=== PATIENT | male | born 1960 | race Caucasian/White ===

== ENCOUNTER 2016-12-04 15:00 | Inpatient (IN) | payer OTHER ==
[~2016-12-04] VITALS: Ht 185.4 cm; Wt 112.1 kg
[2016-12-07] MEDS ORDERED: TRAM50TA PO (08:44)
[2016-12-07] MEDS ORDERED: CETI10 PO (08:44)
[2016-12-07] MEDS ORDERED: METF1000 PO (08:44)
[2016-12-07] MEDS ORDERED: OMEP20TA PO (08:44)
[2016-12-07] MEDS ORDERED: ACET-703 PO (08:44)
[2016-12-07] MEDS ORDERED: LISI20TA3 PO (08:44)
--- NOTE | 2016-12-17 19:39 | MH ---
cc: LEBRON VILLAGOMEZ DATE OF ADMISSION 12/18/2016 ADMISSION DIAGNOSIS Osteoarthritis of the right hip. HISTORY OF THE PRESENT ILLNESS This patient is a 56-year-old male with severe arthritis of the right hip and mild arthritis of the left hip. The patient has had conservative care of his right hip that goes back to 2014 under the care of Dr. Griffiths. The patient has requested that I consider continuing his care and consider anterior hip replacement arthroplasty. PAST MEDICAL HISTORY, SOCIAL HISTORY, FAMILY HISTORY AND REVIEW OF SYSTEMS See attached notes. PHYSICAL EXAMINATION VITAL SIGNS: 6 feet, 250 pounds, BMI 33.9. Blood pressure 150/85 sitting. HEENT: Normocephalic, atraumatic. Pupils equal, round, reactive to light and accommodation. Extraocular motions intact. NECK: Supple. CHEST: Clear. HEART: Regular rate rhythm. ABDOMEN: Soft, nontender, normoactive bowel sounds. MUSCULOSKELETAL: The right hip severe pain with range of motion especially with internal and external rotation. There is a mild flexion contracture. NEUROLOGIC: Examination is within normal limits. VASCULAR: Examination is within normal limits. IMAGING X-ray of the pelvis shows evidence of severe arthritis of right hip and mild arthritis of the left hip. IMPRESSION Osteoarthritis right hip, severe. PLAN Right total hip replacement arthroplasty direct anterior exposure. CONSENT The risks with surgery including infection, bleeding, loss of motion, continued pain, need for further surgery, neurologic and vascular injury. The patient understands these issues and wishes to press on with surgery as outlined above. MD ANGIE Mart/RENATA /6:08 PM /7:28 PM FARIBA
[2016-12-18] MEDS ORDERED: EXPAREL PERI-ARTICULAR INJECTION (TOTAL VOL. 60 ML) P-ARTICULR SCH ×2 (05:45)
[2016-12-18] MEDS ORDERED: INSULIN HUMAN REGULAR 1,000 UNITS/10 ML VIAL SQ PRN (06:00)
[2016-12-18] MEDS ORDERED: CHLORHEXIDINE GLUCONATE 2 % 1 PACK (2 CLOTHS) TOPICAL PRN (06:00)
[2016-12-18] MEDS ORDERED: POVIDONE IODINE 5% (ANTISEPSIS KIT) 4 APPLICATIONS EACH NARE PRN (06:00)
[2016-12-18] MEDS ORDERED: LACTATED RINGER'S 1000 ML IV PRN (06:00)
[2016-12-18] MEDS ORDERED: SODIUM CHLORID 0.9% 500 ML IV PRN (06:00)
[2016-12-18] MEDS ORDERED: METOPROLOL TARTRATE 25 MG TAB PO PRN (06:00)
[2016-12-18] MEDS ORDERED: POVIDONE IODINE 7.5% SCRUB 118 ML BOTTLE TOPICAL SCH (06:15)
[2016-12-18] MEDS ORDERED: VANCOMYCIN 1000 MG/NS 250 ML (for <70 kg) IV SCH ×2 (06:15)
[2016-12-18] MEDS ORDERED: ceFAZolin 2 GM PREMIX 50 ML IV SCH (06:15)
[2016-12-18 06:25] VITALS: BP 142/75; PULSE 73; RESP 20; TEMP 98.7; O2SAT 94
[2016-12-18] MEDS ORDERED: GENTAMICIN SULFATE 80 MG/2 ML VIAL ONE (07:02)
[2016-12-18] MEDS ORDERED: ACETAMINOPHEN 1000 MG/100 ML VIAL IV ONE (07:22)
[2016-12-18] MEDS ORDERED: MIDAZOLAM HCL 2 MG/2 ML VIAL ONE ×2 (07:23→11:01)
[2016-12-18] MEDS ORDERED: KETAMINE HCL 500 MG/5 ML VIAL ONE (07:23)
[2016-12-18] MEDS ORDERED: FAMOTIDINE 20 MG/2 ML VIAL ONE (07:23)
[2016-12-18] MEDS ORDERED: DEXAMETHASONE SOD PHOS 4 MG/ML VIAL ONE (07:23)
[2016-12-18] MEDS ORDERED: TRANEXAMIC ACID INJ 1,100 MG in SODIUM CHLORIDE 0.9% INJ 100 ML IV SCH (07:30)
[2016-12-18] MEDS ORDERED: SODIUM CHLORIDE 0.9% FLUSH 5 ML FLUSH IVF PRN (07:45)
[2016-12-18] MEDS ORDERED: Post-op Orders (for Pharmacy) MISC XX ONE (07:45)
[2016-12-18] MEDS ORDERED: GLUCAGON 1 MG/ML VIAL IM/SQ PRN (07:45)
[2016-12-18] MEDS ORDERED: ACETAMINOPHEN/HYDROcodone 325 MG/10 MG TAB PO PRN (07:45)
[2016-12-18] MEDS ORDERED: MISCELLANEOUS PHARMACY INFORMATION XX ONE (07:45)
[2016-12-18] MEDS ORDERED: DEXTROSE 50% IN WATER 50 ML VIAL(D50) IV PRN (07:45)
[2016-12-18] MEDS ORDERED: MORPHINE SULFATE 8 MG/ML INJ IM PRN (07:45)
[2016-12-18] MEDS ORDERED: MISCELLANEOUS NURSING INFORMATION XX PRN (07:45)
[2016-12-18] MEDS ORDERED: MORPHINE SULFATE 30 MG/30 ML PCA IV SCH (07:45)
[2016-12-18] MEDS ORDERED: NALOXONE HCL 0.4 MG/ML AMP IV PRN (07:45)
[2016-12-18] MEDS ORDERED: HYDR-3366 PO (07:50)
[2016-12-18] MEDS ORDERED: XARE10TA PO (07:50)
[2016-12-18] MEDS: HYDROCHLOROTHIAZIDE 25 MG TAB PO SCH (09:00)
[2016-12-18] MEDS: CETIRIZINE HCL 10 MG TAB PO SCH (09:00)
[2016-12-18] MEDS: LISINOPRIL 20 MG TAB PO SCH (09:00)
[2016-12-18] MEDS: SODIUM CHLORIDE 0.9% FLUSH 5 ML FLUSH IVF SCH ×2 (09:00→20:36)
[2016-12-18] MEDS: metFORMIN HCL 500 MG TAB PO SCH ×2 (09:00→17:00)
[2016-12-18] MEDS: MAGNESIUM HYDROXIDE SUSP 30 ML CUP PO SCH ×2 (09:00→20:36)
[2016-12-18 10:07] LABS: REVIEW FLAG FINAL
[2016-12-18 10:08] LABS: HEMATOCRIT 34.9 % (39.0-51.0)
--- NOTE | 2016-12-18 10:19 | PD.OP ---
cc: Cornel Bynum MD Operative Report Date of Surgery: December 18, 2016 Preoperative Diagnosis: Osteoarthritis right hip, severe Postoperative Diagnosis: Same Procedure: Right total hip replacement arthroplasty, direct anterior exposure Anesthesia: Gen. Surgeon: Cornel Bynum Portal Developer(s): YU Kang Operation and Findings: EBL: 1000 cc INDICATION: This patient presents with significant hip pain related to severe osteoarthritis of the right hip with acetabular osteophytic formation. Despite extensive conservative care this patient continues to be painful and now presents for surgical treatment. NOTE: Nya Kang PA-C was present for the entire surgical procedure as my first responder. In my medical opinion her skill and care was necessary for the proper management of this patient. COMPONENTS: COMPANY: [employer] CUP: [place], 60 mm, 100 series, gription surface LINER: Altrx 36, neutral STEM: [place], size 14, high offset, hydroxyapatite-coated HEAD: 36 mm, ceramic, +1.5 neck length, /14 taper PROCEDURE: This patient was brought to the operating room and anesthetized in the supine position and positioned on the fracture table with both legs held extended. The right hip and leg was scrubbed with alcohol followed by Hibiclens followed by ChloraPrep and draped sterilely. Antibiotics were given within routine time window and a timeout was done. A 4 inch incision was made starting 2 cm distal and 2 cm lateral to the anterior superior iliac spine. The fascia micheal was opened longitudinally. The interval between the fascia micheal and the rectus was opened down to the capsule of the hip joint. Retractors were positioned allowing good visualization of the capsule. This was opened longitudinally and flaps were created. Stay sutures were utilized. Exposure was excellent. The neck was cut at the proper location using fluoroscopy as a guide. The head was removed. Deep retractors were positioned allowing good visualization of the acetabulum. Acetabulum was deepened down to the floor starting with a proper size reamer and reaming up to 59 mm. A trial was utilized. Fluoroscopy was used to check position and confirmed satisfactory alignment. The rim was reamed with a 60 mm reamer and the final cup was positioned in approximately 20 of anteversion and 40-45 of abduction. Position was satisfactory. A single hole eliminator was positioned followed by the final liner. The lifting hook was utilized. The leg was dropped to the floor, maximally externally rotated and brought across the midline. Retractors were positioned. A box osteotome was utilized followed by progressive broaching to the proper stem size. Trial reduction showed excellent alignment and fit. With 60 of external rotation the leg was dropped to the floor without evidence of anterior subluxation. The wound was irrigated. The final stem was inserted and was found to be very stable. The final reduction using the final head. Stability was as previously noted. Intraoperative x-rays were taken. The wound was irrigated copiously. Hemostasis was controlled. Local anesthesia was utilized. The capsule was repaired with #2 Tycron sutures. The fascia micheal was repaired with running 0 PDS on a loop. Subcutaneous tissue was approximated with 2-0 Vicryl and skin with running intradermal 3-0 Vicryl followed by Steri-Strips. A sterile dressing was applied. The patient was awakened and taken to the recovery room in satisfactory condition. FINDINGS: There was severe osteoarthritis of the right hip. The final solution was excellent. No complication was appreciated. The patient initially was in room 16. There was a contamination in the room which necessitated that we moved to room 17 which delayed the start of the surgical procedure. It was unrelated to the surgical event. Cornel Bynum MD December 18, 2016 10:19
[2016-12-18] MEDS ORDERED: TRANEXAMIC ACID INJ 1,130 MG in SODIUM CHLORIDE 0.9% INJ 100 ML IV SCH (10:30)
--- NOTE | 2016-12-18 10:40 | RADRPT ---
EXAM DATE/TIME: 12/18/2016 08:43 [facility] COMPARISON: No previous studies available for comparison. INDICATIONS : Right total hip replacement. MEDICAL HISTORY : Hypertension. Gastroesophageal reflux disease. Arthritis. SURGICAL HISTORY : Total hip replacement. ENCOUNTER: Initial ACUITY: 1 day PAIN SCORE: Non-responsive. LOCATION: Right hip. FINDINGS: The patient is status post right hip replacement with prosthesis in good position. No fracture or di slocation is noted. CONCLUSION: 1. Status post right hip replacement with prosthesis in good position. Juan Pablo Aleman MD on December 18, 2016 at 10:30 Board Certified Radiologist. This report was verified electronically.
[2016-12-18] MEDS ORDERED: DO NOT ADM ANY ANTICOAGULANT DRUGS PRN (10:53)
[2016-12-18] MEDS ORDERED: fentaNYL CITRATE 250 MCG/5 ML AMP ONE (11:01)
[2016-12-18] MEDS ORDERED: MORPHINE SULFATE 4 MG/ML INJ ONE (11:01)
[2016-12-18] MEDS: LACTATED RINGER'S 1000 ML INJ 1,000 ML IV SCH ×2 (11:05→20:13)
[2016-12-18] MEDS ORDERED: *morphine SULFATE 8 MG/ML PERIprocedure ONLY ONE ×2 (11:10→13:21)
[2016-12-18] MEDS: PCA - TOTAL MG MORPHINE DELIVERED PER SHIFT SCH ×2 (14:00→22:09)
[2016-12-18 14:30] VITALS: BP 121/63; PULSE 75; RESP 18; TEMP 97.2; O2SAT 99
[2016-12-18] MEDS ORDERED: PROPOFOL 200 MG/20 ML AMP IV ONE (15:09)
[2016-12-18] MEDS ORDERED: PHENYLEPH/NS 1000 MCG/10 ML SYR IV ONE (15:09)
[2016-12-18] MEDS ORDERED: ONDANSETRON HCL 4 MG/2 ML VIAL IV PUSH ONE (15:09)
[2016-12-18] MEDS ORDERED: LACTATED RINGER'S 1000 ML INJ 5,000 ML IV ONE (15:10)
[2016-12-18] MEDS: INSULIN NovoLIN REGULAR SUPPLEMENTAL SCALE SQ SCH ×2 (16:00→20:48)
[2016-12-18 18:09] VITALS: O2SAT 99
[2016-12-18 20:25] VITALS: BP 129/61; PULSE 87; RESP 18; TEMP 99.5; O2SAT 96
[2016-12-18] MEDS: ACETAMINOPHEN/HYDROcodone 325 MG/10 MG TAB PO PRN (20:35)
[2016-12-18] MEDS: SENNOSIDES 8.6 MG TAB PO SCH (20:36)
[2016-12-19] VITALS (7 sets, daily range): BP systolic 110–141; BP diastolic 59–73; PULSE 79–87; RESP 17–18; TEMP 98.4–100.1; O2SAT 92–98
[2016-12-19] MEDS: ACETAMINOPHEN/HYDROcodone 325 MG/10 MG TAB PO PRN ×4 (02:26→21:18)
[2016-12-19] MEDS: PCA - TOTAL MG MORPHINE DELIVERED PER SHIFT SCH (05:24)
[2016-12-19] MEDS: INSULIN NovoLIN REGULAR SUPPLEMENTAL SCALE SQ SCH ×4 (05:26→21:00)
[2016-12-19 07:11] LABS: HEMATOCRIT 30.5 % (39.0-51.0)
[2016-12-19] MEDS: LACTATED RINGER'S 1000 ML INJ 1,000 ML IV SCH ×2 (08:43→21:13)
[2016-12-19] MEDS: SODIUM CHLORIDE 0.9% FLUSH 5 ML FLUSH IVF SCH ×2 (09:00→21:18)
[2016-12-19] MEDS: CETIRIZINE HCL 10 MG TAB PO SCH (09:24)
[2016-12-19] MEDS: metFORMIN HCL 500 MG TAB PO SCH ×2 (09:25→17:58)
[2016-12-19] MEDS: LISINOPRIL 20 MG TAB PO SCH (09:25)
[2016-12-19] MEDS: HYDROCHLOROTHIAZIDE 25 MG TAB PO SCH (09:25)
[2016-12-19] MEDS: MAGNESIUM HYDROXIDE SUSP 30 ML CUP PO SCH ×2 (09:27→21:00)
[2016-12-19] MEDS: RIVAROXABAN 10 MG TAB PO SCH (09:29)
--- NOTE | 2016-12-19 13:22 | HHI.FF ---
Face to Face Verification Diagnosis: (1) Right hip pain (2) Osteoarthritis of right hip Physical Therapy Gait training, Safety evaluation, Transfer training, bed to chair Hip: Total hip, Protocol: Right, Progress to weight bearing Right LE Weight Bearing: WB as tolerated Additional Instructions PT 4-5 days/wk for 2 weeks. WBAT RLE. Anterior elias precautions. Walker as needed. Gait training / transfers. Nursing RN Days per Week: 3 x Week(s): 1 Dressing Changes: Do not change dressing Additional Instructions Vitals assessment, dressing assessment - do not change unless saturated. I have seen patient Doc Galindo on 12/19/16. My clinical findings support the need for the requested home health care services because: Limited ability to care for self High risk of falls I certify that my clinical findings support that this patient is homebound because: Post-op weakness Unsteady gait/balance Ree Henriquez December 19, 2016 13:22
[2016-12-19] MEDS ORDERED: MISC-163 (13:25)
--- NOTE | 2016-12-19 13:25 | PD.ORT.PN ---
Subjective Subjective Remarks Moderate right hip pain but 'doing fine'. DC'd morphine as he felt it was making him lightheaded. No new radiating leg pain. Asks about restarting omeprazole. He struggled sleeping last night. No CP or SOB. Questions about surgery. Objective Vitals Vital Signs Date Time Temp Pulse Resp B/P Pulse Ox O2 Delivery O2 Flow Rate FiO2 12/19/16 10:26 16 12/19/16 09:45 98 21 12/19/16 08:00 98.7 84 18 140/64 93 12/19/16 05:24 18 12/19/16 04:25 98.4 79 17 131/60 95 12/19/16 00:20 99.8 82 17 118/59 95 12/18/16 22:09 16 12/18/16 20:25 99.5 87 18 129/61 96 12/18/16 18:09 99 21 12/18/16 15:05 Nasal Cannula 2.00 12/18/16 14:30 97.2 75 18 121/63 99 12/18/16 14:00 98.7 74 16 118/59 98 Nasal Cannula 2 12/18/16 13:30 73 16 132/62 98 Nasal Cannula 2 I/O 12/18/16 12/18/16 12/18/16 12/19/16 12/19/16 12/19/16 07:00 15:00 23:00 07:00 15:00 23:00 Intake Total 4760 ml 1123 ml 839 ml Output Total 2275 ml 2000 ml 1325 ml Balance 2485 ml -877 ml -486 ml Intake Oral 240 ml 120 ml IV Total 260 ml 883 ml 719 ml Other 4500 ml Output Urine Total 1275 ml 2000 ml 1325 ml Estimated Blood Loss 1000 ml # Bowel Movements 0 0 Result Diagram: 12/19/16 0625 Objective Remarks Sitting up in bed, at bedside NAD VSS RLE Anterior hip dressing c/d/i, no drainage, mild swelling, no erythema +motor at, +sens, +nvi thigh and calf supple, neg homans Assessment & Plan Ortho Post Op Day #: 1 Problem List: Assessment and Plan pod31 s/p R SAUL, anterior [employer] dc'd. PO pain meds as needed. Ambien 5mg qhs as sleep aid. Ok to restart 20mg omeprazoel daily. Xarelto 10mg qd. PT - WBAT RLE. Anterior saul precautions. Hold dressing changes unless saturated. D/C planning, [facility] tomorrow. Already has walker. States he does not need elevated commode. Ree Henriquez December 19, 2016 13:25
[2016-12-19] MEDS ORDERED: ZOLPIDEM TARTRATE 5 MG TAB PO PRN (13:30)
[2016-12-19] MEDS ORDERED: ONDANSETRON HCL 4 MG/2 ML VIAL IV PUSH PRN (16:00)
[2016-12-19] MEDS: PANTOPRAZOLE SOD 20 MG DELAYED RELEASE TAB PO SCH (16:47)
[2016-12-19] MEDS: SENNOSIDES 8.6 MG TAB PO SCH (21:18)
[2016-12-20 00:29] VITALS: BP 136/74; PULSE 86; RESP 18; TEMP 99; O2SAT 96
[2016-12-20] MEDS: ACETAMINOPHEN/HYDROcodone 325 MG/10 MG TAB PO PRN ×2 (05:54→12:40)
[2016-12-20 06:08] LABS: HEMATOCRIT 28.8 % (39.0-51.0)
[2016-12-20] MEDS: INSULIN NovoLIN REGULAR SUPPLEMENTAL SCALE SQ SCH ×2 (06:08→11:00)
[2016-12-20 06:20] LABS: REVIEW FLAG FINAL
[2016-12-20 08:00] VITALS: BP 130/72; PULSE 84; RESP 18; TEMP 97.9; O2SAT 94
[2016-12-20] MEDS: SODIUM CHLORIDE 0.9% FLUSH 5 ML FLUSH IVF SCH (09:00)
--- NOTE | 2016-12-20 09:03 | HHI.DCPOC ---
Discharge Care Plan Diagnosis: (1) Right hip pain (2) Osteoarthritis of right hip Your Health Problems Are: Incision/Drains Swelling Goals to Promote Your Health * To prevent worsening of your condition and complications * To maintain your health at the optimal level Directions to Meet Your Goals Take your medications as prescribed Follow your dietary instruction Follow activity as directed Keep your appointments as scheduled Take your immunizations and boosters as scheduled If your symptoms worsen call your PCP, if no PCP go to Urgent Care Center or Emergency Room Smoking is Dangerous to Your Health. Avoid second hand smoke Call the 24-hour hour crisis hotline for domestic abuse at Ree Henriquez December 20, 2016 09:03
--- NOTE | 2016-12-20 09:08 | HHI.DS ---
Discharge Summary Admission Date December 18, 2016 at 05:22 Discharge Date: December 20, 2016 Admitting Diagnosis see below Diagnosis: (1) Right hip pain Diagnosis: Principal (2) Osteoarthritis of right hip Diagnosis: Principal Procedures Right total hip arthroplasty, Direct anterior approach Brief History This is a 56 year old male patient with a multi-year history of right hip pain. He sought out medical treatment in 2014. Conservative measures were pursued for more than a year. Eventually surgical treatment was recommended. Because he preferred the anterior approach he was referred to Dr. Cornel Bynum. Treatment options were discussed and the patient elected to move forward with right total hip arthroplasty, direct anterior approach. CBC/BMP: 12/20/16 0524 Significant Findings Laboratory Tests Test 12/18/16 12/19/16 12/20/16 09:40 06:25 05:24 Hemoglobin 11.0 GM/DL 9.2 GM/DL 9.2 GM/DL (13.0-17.0) (13.0-17.0) (13.0-17.0) Hematocrit 34.9 % 30.5 % 28.8 % (39.0-51.0) (39.0-51.0) (39.0-51.0) PE at Discharge Sitting up in bed, at bedside NAD VSS RLE Anterior hip dressing c/d/i, no drainage, mild swelling, no erythema +motor at, +sens, +nvi thigh and calf supple, neg [facility] Hospital Course Surgical treatment was performed on the day of admission without complication. He recovered well in pACU and was transferred to the orthopaedic floor. Pain was controlled with IV and oral medications. DVT prophylaxis was initiated pod# 1. He was compliant with physical therapy and all precautions. After 2 days he was found to be stable and discharged home with home health care. He was instructed to continue therapy, pursue a high fiber diet and to continue DVT prophylaxis for 30 days. Pt Condition on Discharge: Stable Discharge Disposition: Disch w/ Home Health Serv Discharge Instructions Diet Instructions: Diabetic Diet, High Fiber Diet Activities You Can Perform: Weight Bearing as Carlos Activities to Avoid: Strenuous Activity Additional Activity Instruc.: anterior elias protocol New Medications: 3-in-1 Bedside Toilet (3-in-1 Bedside Toilet) 1 Mis Mis 1 EA .ROUTE DIRECTED #1 EA Hydrocodone-Acetaminophen ([place]) 10-325 Mg Tab 1 TAB PO Q4H PRN PAIN #50 Ref 0 TAB Rivaroxaban (Xarelto) 10 Mg Tab 10 MG PO DAILY PRN Prevent Blood Clot #25 Ref 0 TAB Continued Medications: Acetaminophen (Tylenol Extra Strength) 500 Mg Tab 1000 MG PO Q6H PRN pain Ref 0 TAB Cetirizine (Cetirizine) 10 Mg Tab 10 MG PO DAILY Allergies Ref 0 TAB Lisinopril-Hctz (Lisinopril-Hctz) 20-25 Mg Tab 1 TAB PO DAILY Blood Pressure Management #30 Ref 0 TAB Metformin (Metformin) 1,000 Mg Tab 1000 MG PO BIDPC With meals Blood Sugar Management #60 Ref 0 TAB Omeprazole (Omeprazole) 20 Mg Tab 20 MG PO DAILY Heartburn Management #30 Ref 0 TAB Tramadol (Tramadol) 50 Mg Tab 50 MG PO Q6H PRN PAIN Ref 0 TAB Ree Henriquez December 20, 2016 09:08
--- NOTE | 2016-12-20 09:11 | PD.ORT.PN ---
Subjective Subjective Remarks Hip pain a little better this morning. Was able to get more rest last night. Less nausea since morphine dc'd. No CP or SOB. Ready for d/c home today. Objective Vitals Vital Signs Date Time Temp Pulse Resp B/P Pulse Ox O2 Delivery O2 Flow Rate FiO2 12/20/16 00:29 99.0 86 18 136/74 96 12/19/16 20:05 100.1 87 17 135/69 97 12/19/16 16:45 17 12/19/16 16:00 98.7 85 18 141/73 92 12/19/16 12:00 99.0 80 18 110/62 95 12/19/16 09:45 98 21 I/O 12/19/16 12/19/16 12/19/16 12/20/16 12/20/16 12/20/16 07:00 15:00 23:00 07:00 15:00 23:00 Intake Total 839 ml 960 ml 480 ml Output Total 1325 ml 750 ml 550 ml Balance -486 ml 210 ml -70 ml Intake Oral 120 ml 960 ml 480 ml IV Total 719 ml Output Urine Total 1325 ml 750 ml 550 ml # Voids 3 # Bowel Movements 0 0 0 Result Diagram: 12/20/16 0524 Procedures Right total hip arthroplasty, Direct anterior approach Objective Remarks Sitting up in bed, at bedside NAD VSS RLE Anterior hip dressing c/d/i, no drainage, mild swelling, no erythema +motor at, +sens, +nvi thigh and calf supple, neg homans Assessment & Plan Ortho Post Op Day #: 2 Problem List: (1) Right hip pain (2) Osteoarthritis of right hip Assessment and Plan pod#2 s/p R SAUL, anterior Ortho stable. Ok to d/c home w c today. Mild postop anemia, Hg 9.2. Encouraged hydration. PO pain meds as needed. Xarelto 10mg qd. PT - WBAT RLE. Anterior saul precautions. Hold dressing changes unless saturated. F/U in 2 weeks as scheduled. F2F and DME written. Ree Henriquez December 20, 2016 09:11
[2016-12-20] MEDS: PANTOPRAZOLE SOD 20 MG DELAYED RELEASE TAB PO SCH (09:36)
[2016-12-20] MEDS: metFORMIN HCL 500 MG TAB PO SCH (09:36)
[2016-12-20] MEDS: MAGNESIUM HYDROXIDE SUSP 30 ML CUP PO SCH (09:36)
[2016-12-20] MEDS: RIVAROXABAN 10 MG TAB PO SCH (09:36)
[2016-12-20] MEDS: CETIRIZINE HCL 10 MG TAB PO SCH (09:37)
[2016-12-20] MEDS: HYDROCHLOROTHIAZIDE 25 MG TAB PO SCH (09:37)
[2016-12-20] MEDS: LACTATED RINGER'S 1000 ML INJ 1,000 ML IV SCH (09:37)
[2016-12-20] MEDS: LISINOPRIL 20 MG TAB PO SCH (09:37)
[2016-12-20 12:00] VITALS: BP 130/64; PULSE 82; RESP 18; TEMP 98.6; O2SAT 97
== END 2016-12-20 13:54 | disposition home health service (06) | DRG 470 ==
LOC: HSDI 12-18 05:22 → N06B 12-18 14:35
PROVIDERS: ADMIT Orthopaedic Surgery Orthopaedic Surgery of the Spine; ATTEND Orthopaedic Surgery Orthopaedic Surgery of the Spine
PROC: 0SR903A Replacement of Right Hip Joint with Ceramic Synthetic Substitute, Uncemented, Open Approach (ICD-10-PCS; principal; 2016-12-18 07:27)
DX: M16.0 Bilateral primary osteoarthritis of hip (principal); D64.9 Anemia, unspecified; R11.0 Nausea
CPT/HCPCS: 73502; 76000; 82948; 85014; 85018; 86850; 86900; 86901; 86920; 94150; C1776; C9290; J0131; J0690; J1100; J1580; J2250; J2270; J2370; J2405; J3010; J3370; J7050; J7120

== ENCOUNTER → 2016-12-07 | Outpatient (CLI) | payer OTHER ==
[~2016-12-07] MED LIST: ACET-703 PO; CETI10 PO; HYDR-3366 PO; LISI20TA3 PO; METF1000 PO; MISC-163; OMEP20TA PO; TRAM50TA PO; XARE10TA PO
[2016-12-07 08:42] LABS: AUTOMATED NEUTROPHIL # 6.4 TH/MM3 (1.8-7.7); BASOPHIL # 0.1 TH/MM3 (0-0.2); BASOPHIL % 0.7 % (0.0-2.0); EOSINOPHIL # 0.3 TH/MM3 (0-0.4); EOSINOPHIL % 2.7 % (0.0-4.0); HEMATOCRIT 42.3 % (39.0-51.0); LYMPH % 22.9 % (9.0-44.0); LYMPHOCYTE # 2.2 TH/MM3 (1.0-4.8); MEAN CELL VOLUME 63.5 FL (80.0-100.0); MEAN CORPUSCULAR HEMOGLOBIN 20.1 PG (27.0-34.0); MEAN CORPUSCULAR HGB CONC 31.7 % (32.0-36.0); MONO % 6.5 % (0.0-8.0); NEUT % 67.2 % (16.0-70.0); PLATELET COUNT 351 TH/MM3 (150-450); RED BLOOD COUNT 6.65 MIL/MM3 (4.50-5.90); RED CELL DISTRIBUTION WIDTH 16.3 % (11.6-17.2); WHITE BLOOD COUNT 9.5 TH/MM3 (4.0-11.0)
[2016-12-07 08:43] LABS: HEMO FLAGS AUTO DIFF
[2016-12-07 08:49] LABS: APTT (PATIENT) 26.7 SEC (24.3-30.1); INTERNATIONAL NORMALIZED RATIO 0.9 RATIO; PROTHROMBIN TIME - PATIENT 10.3 SEC (9.8-11.6)
[2016-12-07 09:04] LABS: BICARBONATE 32.2 MEQ/L (21.0-32.0); POTASSIUM 4.6 MEQ/L (3.5-5.1)
[2016-12-07 09:16] LABS: BLOOD, URINE NEG (NEG); COMMENT (UR) CULT NOT INDICATED; CULTURE IF INDICATED CULT NOT INDICATED; GLUCOSE,URINE NEG (NEG); KETONE, URINE NEG (NEG); MUCUS URINE FEW /lpf (OCC); NITRITE,URINE NEG (NEG); URINE COLOR YELLOW (YELLW/STRAW)
[2016-12-07 09:38] LABS: ACANTHOCYTES OCC (NORMAL); OVALOCYTES 1+ (NORMAL); SCAN/DIFF AUTO DIFF CONFIRMED; TARGET CELLS 1+ (NORMAL)
--- NOTE | 2016-12-07 18:44 | EKG ---
Date Performed: 12/07/2016 Time Performed: 08:38:09 PTAGE: 55 years EKG: Sinus rhythm NORMAL ECG NO PREVIOUS TRACING DOCTOR: Emiliano Blair Interpretating Date/Time 12/07/2016 18:40:32
== END ==
LOC: CPRE 08:08
PROVIDERS: ATTEND Orthopaedic Surgery Orthopaedic Surgery of the Spine
DX: Z01.812 Encounter for preprocedural laboratory examination (principal); Z01.810 Encounter for preprocedural cardiovascular examination; M16.11 Unilateral primary osteoarthritis, right hip
CPT/HCPCS: 36415; 80048; 81001; 85025; 85610; 85730; 93005